=== PATIENT | female | born 1990 | race Caucasian/White ===

== ENCOUNTER 2024-05-05 09:30 | Inpatient (IN) | payer OTHER, SELFPAY ==
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
[2024-05-05] VITALS (15 sets, daily range): BP systolic 100–145; BP diastolic 50–82; PULSE 70–97; RESP 15–23; TEMP 36.1–36.7; O2SAT 97–100; BMI 48.5
[2024-05-05] MEDS: Lactated Ringers 1,000 ML 999 ML IV (09:55)
[2024-05-05 10:09] LABS: Absolute Lymphocyte Count 1.88 X10^3/uL (0.83-4.51); Absolute Neutrophil Count 8.6 X10^3/uL (2.0-7.7); Basophil# 0.03 X10^3/uL; Basophil% 0.3 % (0-1); Eosinophil# 0.06 X10^3/uL; Eosinophils% 0.5 % (0-5); Hematocrit 36.1 % (37-47); Hemoglobin 11.8 g/dL (12.0-15.0); Lymphocyte # 1.88 X10^3/ul (0.83-4.51); Lymphocyte % 16.9 % (19-41); Mean Corp Hgb Conc 32.7 g/dL (32-36); Mean Corpuscular Hgb 28.4 pg (27.0-32.0); Mean Platelet Vol. 9.4 fl (6.2-12.0); Monocyte# 0.42 X10^3/uL; Monocyte% 3.8 % (0-10); NRBC Flagged by Analyzer 0 % (0-5); Neutrophil # 8.64 X10^3/uL (2.7-7.7); Neutrophil % 77.8 % (47-70); Platelet Count 293 K/mm3 (150-450); RBC Distribution Width SD 40.9 fl (35.1-43.9); Red Blood Count 4.15 M/mm3 (4.2-5.4); White Blood Count 11.1 K/mm3 (4.4-11.0)
[2024-05-05] MEDS: Lactated Ringers 1,000 ML 150 ML IV (10:50)
[2024-05-05 10:59] LABS: Syphilis Antibodies Non-reactive
[2024-05-05] MEDS: Sodium Citrate/Citric Acid 30 ML UDC PO (11:19)
[2024-05-05] MEDS: Acetaminophen 500 MG Tablet 1000 MG PO ×2 (11:19→17:44)
[2024-05-05] MEDS: Cefazolin 3 GM in 0.9% Normal Saline (100mL Bag) 100 ML IV (12:06)
--- NOTE | 2024-05-05 12:23 | FALS_PTH ---
PATIENT: CAR ALEXIS LOC: [facility] U#:[id number] AGE/SX: 33/F ROOM: WP007 RE05/05/[address]: Dr. Jillian Ibarra MD : 1990 BED: 1 DIS: 05/07/2024 SPEC #: [id number] RECD: 05/05/24 13:46 STATUS: CORTNEY REYisel #: [id number] SIENA: 05/05/24 12:[address]: Jillian Ibarra DEPT: SURGICAL PATHOLOGY RECD BY: Sendy Sethi ENTERED: 05/08/24 07:46 SP TYPE: FALL TUBES OTHR DR: Dr. Harvey Jones, DO Tissues: Fallopian tube Procedures: Surgery Specimen Level II HEADER OPERATION: Tubal ligation PRE-OP DIAGNOSIS: Sterilization TISSUE SUBMITTED: Bilateral fallopian tubes MICROSCOPIC DIAGNOSIS Right fallopian tube, salpingectomy: Complete cross section of fallopian tube. Benign paratubal cyst. Left fallopian tube, salpingectomy: Complete cross section of fallopian tube. Benign paratubal cyst. AM: 05/09/2024 MICROSCOPIC DESCRIPTION Slides are reviewed. GROSS DESCRIPTION Received in fixative is one container labeled with the patient's name and designated bilateral fallopian tubes- suture in left tube. The specimen consists of bilateral fallopian tubes including fimbrial ends. Right fallopian tube measures 4.5cm in length and 0.9cm in diameter and left fallopian tube measures 5.5 cm in length and 0.7 cm in diameter. The right fallopian tube shows a paratubal cyst measuring 1.0 x 0.4 x 0.3cm and the left fallopian tube shows a paratubal cyst measuring 2.2 x 1.5 x 2.0cm. Sections reveal unremarkable cut surfaces. Tax Compliance Manager sections are submitted in two cassettes: 1- right fallopian tube and paratubal cyst, 2- left fallopian tube and paratubal cyst / SJ: 05/08/2024 TC:5 CPT: 73071g2
--- NOTE | 2024-05-05 13:02 | EX.PCM.OBRPT ---
Maternal Data Information Final JAYLAN: 05/12/24 Gestational age: 39 0/7 Details Operative Information Date of Procedure: 05/05/24 Pre-Operative Diagnosis: previous c/s, sterilizatino request Post-Operative Diagnosis: same Indications for : Repeat Elective and Desires elective sterilization Classification: Scheduled Procedure Type: low transverse (with bilateral salpingectomy) alarm mechanism adjuster #1: Vania Busch Type of Anesthesia: Spinal Anesthesiologist: marlys Antibiotic Given: Ancef 3 grams IV x1 Drain: Walters to straight drain Estimated Blood Loss: 700 Fluids Replaced: 1200 Procedure Start Time: 12:31 Procedure Stop Time: 13:05 Time of Delivery: 12:36 Findings Description of Procedure: The patient was taken to the operating room. She was prepped and draped in the dorsal supine position with a leftward tilt. A Pfannenstiel skin incision was made approximately 2 cm above the symphysis pubis and carried through to underlying layer fascia with the scalpel. The fascia was incised incised in the midline and extended laterally with the Watkins scissors. The fascia was dissected off the rectus muscles with blunt and sharp dissection. The rectus muscles were in the midline and the peritoneum was entered bluntly. The peritoneal incision was stretched and the Dipak O retractor was placed. Care was taken to ensure there were no abdominal contents entrapped underneath it. The uterine incision was made in a low transverse fashion with the scalpel and extended superiorly and inferiorly with blunt dissection. The amniotic membranes were ruptured bluntly and clear amniotic fluid returned. The 's head was brought to the incision in the flexed position and delivered without difficulty. The remainder of the was delivered with gentle traction and fundal pressure in the standard fashion. The mouth and nares were bulb suctioned. The cord was clamped and cut as the was stimulated. Cord clamping was delayed. The was handed off to the waiting nursing staff. The placenta was delivered with fundal massage and gentle traction in the standard fashion. The uterus was left in situ and cleared of all clots and debris. The cervix was dilated with a ring forcep. The uterine incision was closed with #1 Vicryl in a running locked fashion. The incision was examined and was found to be hemostatic. The left fallopian tube was identified and followed out to the fimbriated end. The LigaSure device was used to clamp, seal and transect the antimesenteric portions of the tube to the insertion at the cornual edge. The tube was amputated from the uterus with the LigaSure device and the pedicles were hemostatic. Same procedure was performed on the contralateral side and hemostasis of the pedicles was confirmed. The uterine incision was reexamined and found to be hemostatic. Heema blast was placed over the uterine incision prophylactically. The rectus muscles were examined and any bleeding was Bovie cauterized. The parietal peritoneum and rectus muscles were closed en bloc with an 0 Vicryl running suture. Heema blast was placed over the rectus muscles. The rectus fascia was examined and any bleeding was Bovie cauterized and the rectus fascia was closed with looped 1 PDS suture in a running standard fashion. The subcutaneous tissue was examining and any bleeding was Bovie cauterized. The subcutaneous tissue was reapproximated with 3-0 Vicryl suture. The skin was closed in a subcuticular fashion by the HEAD OF CYTOGENETICS with me present in the labor and delivery suite. I performed the remainder of the procedure with assistance. All sponge, lap, and needle counts were correct. The patient was taken to her room for recovery in a stable condition. Presentation: Positive for Vertex Amniotic Membrane Rupture Type: Artificial Amniotic Fluid Description: Clear Placental Delivery Description: Expressed Placenta Disposition: [facility] Specimen(s) Sent to Pathology: bialteral fallopian tubes Cord Vessel Description: 3 Vessels Cord Entanglement: None A Gender: Female ([facility]) (1 minute): 8 (5 minute): 9 Delayed Cord Clamping: Yes Complications Complications: none Admit VTE Documentation VTE Present on Admission: No VTE Mechan Device Prophylaxis: [facility]TE Pharm Prophylaxis Ordered: Yes
[2024-05-05] MEDS: Oxytocin 15 Units/NS 250ml 15 UNITS/250 ML IV.SOLN 83 UNITS IV (13:15)
[2024-05-05 13:46] LABS: Pathology Specimen OB SEE PATHOLOGY REPORT
[2024-05-05] MEDS: Ketorolac 30 MG/ML Syringe IV ×2 (14:10→19:50)
[2024-05-05] MEDS: oxyCODONE 5 MG Tablet PO ×2 (15:31→21:33)
[2024-05-05] MEDS: Lactated Ringers 1,000 ML 100 ML IV (16:26)
[2024-05-06] MEDS: Enoxaparin 40 MG/0.4 ML Syringe SC ×3 (00:20→21:24)
[2024-05-06] MEDS: Acetaminophen 500 MG Tablet 1000 MG PO ×4 (00:21→19:11)
[2024-05-06 00:26] VITALS: BP 105/60; PULSE 59; RESP 18; TEMP 36.6; O2SAT 98
[2024-05-06] MEDS: 0.9% Saline Lock 10 ML Syringe IV (01:59)
[2024-05-06] MEDS: Ketorolac 30 MG/ML Syringe IV ×2 (01:59→07:54)
[2024-05-06 04:15] VITALS: BP 95/50; PULSE 64; RESP 16; TEMP 36.4; O2SAT 97
[2024-05-06 07:01] LABS: Hematocrit 31.8 % (37-47); Hemoglobin 10.3 g/dL (12.0-15.0); Mean Corp Hgb Conc 32.4 g/dL (32-36); Mean Corpuscular Hgb 28.6 pg (27.0-32.0); Mean Corpuscular Volume 88.3 fL (81-99); Mean Platelet Vol. 9.3 fl (6.2-12.0); Platelet Count 270 K/mm3 (150-450); RBC Distribution Width CV 13.1 % (11.6-14.6); RBC Distribution Width SD 42.4 fl (35.1-43.9); White Blood Count 13.3 K/mm3 (4.4-11.0)
[2024-05-06 07:57] VITALS: BP 118/63; PULSE 70; RESP 16; TEMP 36.6; O2SAT 98
[2024-05-06] MEDS: Senna/Docusate Sodium 1 Tablet PO (09:46)
[2024-05-06 11:49] VITALS: BP 108/64; PULSE 63; RESP 16; TEMP 36.9; O2SAT 97
--- NOTE | 2024-05-06 12:09 | PCM.PN.OB ---
Subjective Subjective Doing well per patient and nursing staff. Ambulating and taking PO without difficulty. Voiding and passing flatus. Pain controlled. , services for assistance. Denies headache, visual changes, chest pain, shortness of breath, leg pain or increased bleeding. Lochia normal. Objective Data Objective Data Vital Signs: Vital Signs Temp Pulse Resp BP Pulse Ox O2 Del Method 98.4 F 63 16 108/64 97 Room Air 05/06/24 11:49 05/06/24 11:49 05/06/24 11:49 05/06/24 11:49 05/06/24 11:49 05/06/24 11:49 Oxygen Delivery Method Room Air Weight: 348 lb 1.758 oz Body Mass Index (BMI) 48.5 Intake & Output: Intake and Output for Last 24 Hours 05/04/24 05/05/24 05/06/24 23:59 23:59 23:59 Intake Total 2283.25 / 2283.25 Output Total 3000 / 3000 700 / 700 Balance -716.75 / -716.75 -700 / -700 Lab / Micro Data 05/06/24 06:50 Labs: Laboratory Results - last 24 hr 05/05/24 09:55: Antibody Screen NEGATIVE 05/06/24 06:50: WBC 13.3 H, RBC 3.60 L, Hgb 10.3 L, Hct 31.8 L, MCV 88.3, MCH 28.6, MCHC 32.4, RDW Std Deviation 42.4, RDW Coeff of Maye 13.1, Plt Count 270, MPV 9.3 Physical Exam Const alert and oriented x3 General Appearance: cooperative Orientation / Consciousness: awake, oriented to person, oriented to place and oriented to time Exam Limitations: no limitations HEENT normocephalic Head and Scalp: normal to inspection, normocephalic and atraumatic Face and Sinus: normal facial exam Eyes General Eye: normal appearance of both eyes Neck full ROM Chest Chest: symmetrical chest wall rise Resp normal respiratory effort and normal air movement Auscultation: clear to auscultation bilaterally Cardio regular rate, regular rhythm, S1 normal heart sound, S2 normal heart sound, no murmurs, no rub, no gallops and no clicks GI normal to inspection, nondistended, normoactive bowel sounds and non-tender GI Narrative: dressing dry and intact appearance of the vagina normal Bladder / Kidney Exam: no CVA tenderness Back/Spine normal ROM Extremity normal to inspection and full ROM Skin no rashes or lesions noted Neuro oriented x3, CN's II-XII intact bilaterally and moves all extremities Sensorium / Orientation: awake, alert and oriented to person Motor Exam: clonus absent Deep Tendon Reflexes: Rt Patellar (L4): 2+ and Lt Patellar (L4): 2+ Assessment & Plan (1) Consultation for sterilization: (2) Chiari malformation: COMMENT: 2015/[employer] NEUROLOG[employer]. TYPE 1. LAST VISIT WITH NEUROLOGY 2019 (3) Delivery by section: PLAN: Plan 1) Routine PP care 2) Vitals stable 3) acute blood loss anemia, iron supplement 4) Pain management 5) D/C home tomorrow
[2024-05-06] MEDS: Naproxen 500 MG Tablet PO ×2 (14:44→19:45)
[2024-05-06] MEDS: Iron Polysaccharide Complex 150 MG CAPSULE PO (14:44)
[2024-05-06 15:19] LABS: Iron 47 ug/dL (50-170)
[2024-05-06 15:44] VITALS: BP 111/65; PULSE 73; RESP 16; TEMP 36.3; O2SAT 97
[2024-05-06 19:11] VITALS: BP 125/46; PULSE 73; RESP 16; TEMP 36.4; O2SAT 99
[2024-05-07 02:00] VITALS: BP 117/69; PULSE 66; RESP 15; TEMP 36.4; O2SAT 95
[2024-05-07] MEDS: Naproxen 500 MG Tablet PO ×2 (02:06→10:38)
[2024-05-07] MEDS: Acetaminophen 500 MG Tablet 1000 MG PO ×2 (02:07→08:32)
[2024-05-07 08:20] VITALS: BP 117/66; PULSE 66; RESP 16; TEMP 36.1; O2SAT 99
--- NOTE | 2024-05-07 09:50 | PCM.PN.OB ---
Subjective Subjective Doing well per patient and nursing staff. Ambulating and taking PO without difficulty. Voiding and passing flatus. Pain controlled. , services for assistance. Denies headache, visual changes, chest pain, shortness of breath, leg pain or increased bleeding. Lochia normal. Objective Data Objective Data Vital Signs: Vital Signs Temp Pulse Resp BP Pulse Ox O2 Del Method 97 F L 66 16 117/66 99 Room Air 05/07/24 08:20 05/07/24 08:20 05/07/24 08:20 05/07/24 08:20 05/07/24 08:20 05/07/24 08:20 Oxygen Delivery Method Room Air Weight: 348 lb 1.758 oz Body Mass Index (BMI) 48.5 Intake & Output: Intake and Output for Last 24 Hours 05/05/24 05/06/24 05/07/24 23:59 23:59 23:59 Intake Total 2283.25 / 2283.25 Output Total 3000 / 3000 700 / 700 Balance -716.75 / -716.75 -700 / -700 Lab / Micro Data 05/06/24 06:50 Labs: Laboratory Results - last 24 hr 05/06/24 14:50: Iron 47 L ROS Constitutional Constitutional: Reports systems reviewed and no addt'l complaints, except as documented; Denies headache(s) Eyes Eyes: Denies acute decrease in peripheral vision, blurry vision or change in vision ENT HEENT: Reports systems reviewed and no addt'l complaints, except as documented Cardiovascular Cardiovascular: Denies chest pain or dizziness Respiratory/Chest Respiratory/Chest: Denies cough, dyspnea, dyspnea on exertion, shortness of breath at rest or shortness of breath with exertion Gastrointestinal Gastrointestinal: Denies abdominal pain, diarrhea, nausea or vomiting Genitourinary Genitourinary: Denies abdominal discomfort Musculoskeletal Musculoskeletal: Denies limited range of motion Integumentary Integumentary: Reports systems reviewed and no addt'l complaints, except as documented Neurologic Neurologic: Reports systems reviewed and no addt'l complaints, except as documented Psychiatric Psychiatric: Reports systems reviewed and no addt'l complaints, except as documented Endocrine Endocrinology: Reports systems reviewed and no addt'l complaints, except as documented Hematologic/Lymphatic Hematologic/Lymphatic: Reports systems reviewed and no addt'l complaints, except as documented Allergic/Immunologic Allergic/Immunologic: Reports systems reviewed and no addt'l complaints, except as documented Physical Exam Const alert and oriented x3 General Appearance: cooperative Orientation / Consciousness: awake, oriented to person, oriented to place and oriented to time Exam Limitations: no limitations HEENT normocephalic Head and Scalp: normal to inspection, normocephalic and atraumatic Face and Sinus: normal facial exam Eyes General Eye: normal appearance of both eyes Neck full ROM Chest Chest: symmetrical chest wall rise Resp normal respiratory effort and normal air movement Auscultation: clear to auscultation bilaterally Cardio regular rate, regular rhythm, S1 normal heart sound, S2 normal heart sound, no murmurs, no rub, no gallops and no clicks GI normal to inspection, nondistended, normoactive bowel sounds and non-tender GI Narrative: Dressing clean and dry appearance of the vagina normal Bladder / Kidney Exam: no CVA tenderness Back/Spine normal ROM Extremity normal to inspection and full ROM Skin no rashes or lesions noted Neuro oriented x3, CN's II-XII intact bilaterally and moves all extremities Sensorium / Orientation: awake, alert and oriented to person Motor Exam: clonus absent Deep Tendon Reflexes: Rt Patellar (L4): 2+ and Lt Patellar (L4): 2+ Assessment & Plan (1) Delivery by section: (2) Consultation for sterilization: PLAN: Plan 1) Routine POD #2 Care 2) Vitals stable 3) Pain management 4) Iron supplement, hgb 10.3 5) D/C home 6) Follow up in 1 wk for incision check and 6 wk PP for visit
--- NOTE | 2024-05-07 09:55 | PCM.DC.SUM ---
Providers Date of Admission: 05/05/24 Primary Care Physician: Dr. aHrvey Jones DO Reason For Visit: REPEAT C SECTION Diagnosis Discharge Diagnosis (1) Delivery by section: Status: Acute (2) Consultation for sterilization: Status: Acute Code(s): Z30.09 - Encounter for other general counseling and advice on contraception Plan 1) Routine POD #2 Care 2) Vitals stable 3) Pain management 4) Iron supplement, hgb 10.3 5) D/C home 6) Follow up in 1 wk for incision check and 6 wk PP for visit Medications at Discharge Home Medications acyclovir 400 mg tablet 400 mg PO PRN PRN PRE CSECTION 02/15/24 vits,calcium no.78-iron fumarate-folic acid 29 mg-1 mg tablet (Prenatabs FA) 1 tab PO DAILY 02/15/24 acetaminophen 500 mg tablet 1,000 mg (2 x 500 mg) PO Q6H #0 tabs 05/07/24 naproxen 500 mg tablet 500 mg PO Q8H #0 tabs 05/07/24 polysaccharide iron complex 150 mg iron capsule (Ferrex) 150 mg PO DAILY #0 caps 05/07/24 sennosides 8.6 mg-docusate sodium 50 mg tablet (Stimulant Laxative Plus) 1 - 2 tab PO DAILY #0 tabs 05/07/24 Hospital Course Summary of Care Provided Minutes Spent on Discharge: 15 Hospital Course: Planned repeat section on 05/05/24. Normal postoperative course. D/C on POD #2 Weight / BMI Weight Weight: 348 lb 1.758 oz Body Mass Index (BMI) 48.5 ABG / Lab / Microbiology Data 05/06/24 06:50 Laboratory: Laboratory Results - last 24 hr 05/06/24 14:50: Iron 47 L D/C Instructions Discharge Diet: No restrictions May resume sexual activity in: 6 weeks Weight Bearing Status: Full weight bearing Lifting Restricted to (Lbs): 20 Call your doctor if your incision/area has: Continuous Slow Oozing, Sudden Increased Bleeding, Increased Pain/ Swelling, Increased Redness, Foul Smelling Discharge and Swelling at the incision site Call your doctor if you observe: Fever of 101 or Higher, Inability to urinate, Inability to have a bowel movement, Using more than 1 pad per hour, Shortness of breath, Dizziness, Fainting spells, Chest pain, Increased palpitations (irregular heartbeat), Calf discomfort and Uncontrolled pain Suture Line Care: Avoid Pulling/Pushing Remove Dressing in: 1 week Cleanse incision/area with: Keep Dressing Clean & Dry Meaningful Use Info Meaningful Use Meaningful Use Diagnoses (Choose all that apply): None applicable Ischemic Stroke Statin Dosing Therapy Reference: STATIN DOSE THERAPY REFERENCE: * Patients > 75 years receive moderate or high dose statin therapy. * Patients 75 years or YOUNGER should receive HIGH intensity statin dose unless contraindicated. You will be required to document reason for non-treatment if statin daily dose does not meet guidelines. HIGH DOSE STATIN THERAPY DAILY Atorvastatin > than or = to 40 mg Rosuvastatin > than or = to 20 mg Amlodipine + Atorvastatin > than or = to 2.5/40 mg Ezetimibe + Simvastatin 10/80 mg Simvastatin 80mg Discharge Plan Admission Admit Date/Time: 05/05/24 09:30 Primary Reason for Your Visit: Repeat section, tubal ligation Attending Provider: Jillian Ibarra Primary Care Provider: Harvey Jones Discharge Orders/Prescriptions Prescriptions: New acetaminophen 500 mg Tablet 1,000 mg PO Q6H Qty: 0 0RF polysaccharide iron complex [Ferrex 150] 150 mg iron Capsule 150 mg PO DAILY Qty: 0 0RF sennosides-docusate sodium [Stimulant Laxative Plus] 8.6-50 mg Tablet 1 - 2 tab PO DAILY Qty: 0 0RF naproxen 500 mg Tablet 500 mg PO Q8H Qty: 0 0RF Continued acyclovir 400 mg tablet 400 mg PO PRN PRN (Reason: PRE CSECTION) Discontinued aspirin 81 mg capsule 162 mg PO DAILY No Action Prenatabs FA 29-1 mg tablet 1 tab PO DAILY Referrals / Follow Up: Harvey Jones DO [Primary Care Provider] - Disposition Disposition (needs filled in before D/C Order can be placed): Home, Self Care
--- NOTE | 2024-05-07 10:35 | CASEMGMT ---
Social Work Assessment Labor and Delivery Unit Patient Address: [address] [place] [address] Phone number: Date of Referral: 05/05/2024 Time of Referral: 14:34 Referred By: Jillian Ibarra Date of Intervention: ?05/07/24 Time of Intervention: 10:35 Reason for Referral:? Mental Health History obtained from: Medical records, mother of baby (MOB) and father of baby (FOB).? Household composition: MOB, Julieta Jiménez, FOB, Fausto Jiménez, daughter of LIBERTAD Hitchcock, age 11 whom the FOB is in the process of adopting), FOB?s 9 year old son Carl (home on the weekends), MOB and FOB?s ?daughter Andra, age 4 and baby daughter Ewa, born 05/05/24. Patient's parent/guardian status: MOB and FOEduardo are and have been together for 7 years.? Both are actively involved and will be providing care for baby. MOB denied any concerns with domestic violence and described a positive and supportive relationship with her Medical History: ?LIBERTAD has had 3 pregnancies and 3 deliveries. LIBERTAD received care through [facility] beginning at 8 weeks and 0 days. Visits appeared to be regular/routine. Baby was born via .? Weight: 8 pounds, 1 oz.? Apgars: 8 and 9. Joy Operator Helper was identified as Dr. [facility]. Educational Status: MOB and FOEduardo denied any issues or concerns with reading or writing. LIBERTAD is a high school graduate and MORENA is a high school graduate with some college. Financial Status: MOB and FOB reported their income is sufficient to meet the needs of their family at this time. 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 LIBERTAD gets 12 weeks of maternity leave.? 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 MORENA gets 2 days off and then has to return to work. Supplies: MOB and FOB reported they have all the supplies they need for baby at this time including but not limited to: Car Seat, bassinet, pack-n-play, crib, diapers, bottles and clothing. Childcare/Caregiver(s):? MOB reported baby will have a events specialist who has known the family for a long time, is a friend and also lives in their neighborhood. The events specialist will provide childcare once MOB returns to work and was described as reliable. Transportation:? MOB and FOB reported they are both licensed drivers and have a reliable vehicle to take baby to and from all medical appointments. No transportation issues identified. Programs/Agencies Involved: MOB and FOB denied any current programs or agencies involved at this time. MOB reported previous involvement with [facility] and [facility]. ??? Children Services/Legal Issues:? Denied. Behavioral Health Issues: ??Mental Health History: MOB has a history of depression and PPD with Coretta which MOB reported was largely due to being alone at that time. MOB reported her depression is managed at this time and MOB is will to reach out and ask for help/get connected in the future if ever needed. FOB denied any history of mental health. ?Substance Use History: MOB and FOB denied any previous or current drug or alcohol abuse. MOB and FOB reported they are social drinkers however stated neither drinks very often. ??Family History: Not reported.?? Drug Screens: ?None obtained at the time of this admission. ?fabric and textile factory worker administered the [place].? MOB?s score was a 1.? fabric and textile factory worker provided verbal education about the screening tool as well as scores to look out for in the future which MOB reported she understood. Family/Social Stressors: ?MOB and FOB denied any current family or social stressors. Support Systems: Ample.? MOB identified her biggest supports as her and MOB?s mother. ?? Depression/Shaken Baby/Safe Sleeping: fabric and textile factory worker provided verbal and written education on PPD, Safe Sleeping and Shaken Baby.? Parents verbalized an understanding. ??? ASSESSMENT:? MOB and FOB provided consent to social work visit. Upon arrival, MOB was holding baby while FOB was getting everything packed up to go home. Both MOB and FOB were both verbally engaged and cooperative. MOB did most of the talking. After the assessment was completed, social media content manager asked the FOB to leave the room which both he and the MOB agreed to. fabric and textile factory worker administered the [place] Depression Scale at that time and also asked the MOB if she feels safe in her home and inquired f there are any concerns of domestic violence, mental health issues or drug or alcohol abuse issues which MOB denied. MOB again reported she feels safe and denied any health or safety concerns.? fabric and textile factory worker observed positive interaction with everyone in the room and MOB was observed to be very soothing and comforting to the baby and was very attentive. Safe Plan of Care for infant related to substance use: N/A; not needed. ? PLAN:? Baby to be discharged home when ready.? fabric and textile factory worker also provided written information on depression, depression resources and Help Me Grow as additional resources offered by social media content manager which MOB and FOB accepted. No other services requested or indicated. Cyndi Peres, IUSS ANALYST, DIRECTOR OF ONLINE EDUCATION
[2024-05-07] MEDS: Iron Polysaccharide Complex 150 MG CAPSULE PO (10:38)
[2024-05-07] MEDS: Senna/Docusate Sodium 1 Tablet PO (10:39)
== END 2024-05-07 11:30 | disposition home or self-care (01) | DRG 783 ==
PROVIDERS: Advanced Practice Midwife; Admitting Provider Obstetrics & Gynecology; PCP Student in an Organized Health Care Education/Training Program; Referring Provider Obstetrics & Gynecology; Visit Provider Obstetrics & Gynecology
PROC: 10D00Z1 Extraction of Products of Conception, Low, Open Approach (ICD-10-PCS; CPT 59514; principal; 2024-05-05 11:45)
DX: O34.211 Maternal care for low transverse scar from previous cesarean delivery (principal); G93.5 Compression of brain; D62 Acute posthemorrhagic anemia; O99.354 Diseases of the nervous system complicating childbirth; O90.81 Anemia of the puerperium; Z30.2 Encounter for sterilization; Z37.0 Single live birth; Z3A.39 39 weeks gestation of pregnancy; Z79.82 Long term (current) use of aspirin
CPT/HCPCS: 59025; 59050; 83540; 85025; 85027; 86780; 86850; 86900; 86901; 88302; 99221; J7120; A4216; G0378; J2405